=== PATIENT | female | born 1955 | race Caucasian/White ===

== ENCOUNTER → 2024-08-19 14:42 | Outpatient (REF) | payer MEDICARE, OTHER, SELFPAY | LOC: HWWDC 14:42 | PROVIDERS: ATTENDING PHYSICIAN Family Medicine | DX: Z12.31 Encounter for screening mammogram for malignant neoplasm of breast (principal) | CPT/HCPCS: 77063; 77067 ==

== ENCOUNTER 2025-09-14 05:47 | Day surgery (SDC) | payer MEDICARE, OTHER, SELFPAY ==
[2025-08-26 11:43] LABS: Hematocrit 41.8 % (37.0-47.0); Hemoglobin 13.8 g/dL (12.0-16.0); Mean Corp Hgb Conc. 33.0 g/dL (33.0-37.0); Mean Corpuscular Volume 94.1 fL (81.0-99.0); Platelet Count 360 10^3/uL (130-400); Red Cell Dist. Width 14.1 % (11.5-14.5)
[2025-08-26 12:01] LABS: ALT (SGPT) 16 U/L (0-35); AST (SGOT) 19 U/L (14-36); Albumin 4.4 g/dl (3.5-5.0); Alkaline Phosphatase 69 U/L (38-126); Blood Urea Nitrogen 11 mg/dl (7-17); Calcium 9.9 mg/dl (8.4-10.2); Carbon Dioxide 29 mmol/L (22-30); Chloride 103 mmol/L (98-107); Glucose 78 mg/dl (70-99); Potassium 4.3 mmol/L (3.5-5.1); Sodium 138 mmol/L (135-145); Total Protein 7.2 g/dl (6.3-8.2); eGFR > 60.00
[2025-08-26 13:32] LABS: Glycohemoglobin (HgbA1c) 5.7 % (4.0-5.9)
[2025-08-26 13:55] VITALS: BMI 31.8
[2025-08-26 14:55] VITALS: BMI 31.8
--- NOTE | 2025-08-31 09:42 | VNURNOTE ---
Patient is scheduled for an elective R TKA on 09/14 - she is a same day patient with Dr Martinez. Spoke with patient prior to surgery. Introduced role of [facility] Liaison. Patient reports that she lives with her spouse in a MULTI story home.
She has 'an old' rolling walker and will obtain a second one for her second floor.
She has never had same day surgery.
PCP is through [facility]
Discussed [facility] joint protocol and post surgical plans.
Reviewed that she will have VN services initially and will then start outpatient PT.
Patient selects [facility] for her home care needs. She stated she has had trouble with arranging outpt PT - her first choices [facility] on [facility]. She was told they have a month waiting list. I offered 2 other outpt PT
centers to try that are near her home: [facility] outpt PT in [place] and Outpt PT in [place]. Contact numbers provided. Patient was appreciative. Advised her to schedule outpt for end of surgical week.
Patient is in agreement with plan and states that her spouse will be home with her. Referral placed in [facility].
Plan: [facility] per [facility] joint protocol on 09/14 then outpt PT TBD
--- NOTE | 2025-09-11 15:11 | CM ---
Orthopedic Case Management Assessment
Demographics: Confirmed,
Living situation: Lives with spouse in a 2 story home is independent with adl's and ambulation, has walker at home.
Support Person Post Operatively: Spouse
History of
VN: No
SNF: No
Outpatient: Patient is set up with outpatient PT/OT at [facility] on [facility], 09/18/25
Has patient purchased required equipment: patient to obtain a walker
PCP: Judith Leong
Pharmacy: [facility]
Post Operative Discharge Plan: Patient has been scheduled for total knee arthroplasty on 09/14/[address] Martinez, same day surgery, window caser reached out to patient and patient, confirms the her will assist with transportation, patient
also reports that she was able to set up outpatient therapy with [facility] on [facility] for 09/18/25.
[2025-09-14] VITALS (18 sets, daily range): BP systolic 122–163; BP diastolic 60–99; BMI 31.8
[2025-09-14 06:36] LABS: Glucose - Point of Care 97 mg/dl (70-99)
[2025-09-14] MEDS: TYLENOL 650 MG PO (06:37)
[2025-09-14] MEDS: NORMOSOL-R/PLASMALYTE-A 1000 IV ×2 (06:37→10:39)
[2025-09-14] MEDS: CELEBREX 200 MG PO (06:37)
--- NOTE | 2025-09-14 07:09 | W.DS.TRANS ---
DC Summary - Emr Trainer
-
Discharge Instructions:
Discharge Diagnosis/Procedures R TKA Dr Martinez 09/14/25
Diet Diabetic, Carb Controlled
Activity With Walker
Driving Restrictions No driving
Bathing Restrictions OK to Shower
Other Services PT
Instructions:
Stand-Alone Forms: SDS Total Hip and Knee D/C
Changes to Home Medications: Yes
Discharge Medications:
DC Medications w/original date entered in [employer]
ezetimibe 10 mg tablet 10 mg PO HS 11/04/12
cholecalciferol (vitamin D3) 25 mcg (1,000 unit) tablet (Vitamin D3) 25 mcg PO DAILY 08/25/25
duloxetine 60 mg capsule,delayed release 90 mg PO NOON 60mg + 30mg tablet 08/25/25
levothyroxine 88 mcg tablet 88 mcg PO DAILY 08/25/25
metformin 500 mg tablet 500 mg PO QPM 08/25/25
mupirocin 2 % topical ointment 1 applic topical BID infection prevention #1 tube 08/25/25
simvastatin 10 mg tablet 10 mg PO HS 08/25/25
tirzepatide 12.5 mg/0.5 mL subcutaneous pen injector (Mounjaro) 12.5 mg SC MO 08/25/25
cefadroxil 500 mg capsule 500 mg PO BID infection prevention #14 caps 08/26/25
celecoxib 200 mg capsule 200 mg PO DAILY Anti-inflammatory #14 caps 08/26/25
dexamethasone 4 mg tablet 4 mg PO BID inflammation #6 tabs 08/26/25
famotidine 20 mg tablet 20 mg PO HS GI prophylaxis #30 tabs 08/26/25
gabapentin 300 mg capsule 300 mg PO HS sleep/pain #10 caps 08/26/25
ondansetron 4 mg disintegrating tablet 4 mg PO Q6H PRN n/v #20 tabs 08/26/25
oxycodone 5 mg tablet 5 mg PO Q6H PRN 1 tab moderate pain, 2 tabs severe pain #30 tabs 08/26/25
Saccharomyces boulardii 250 mg capsule (Florastor) 250 mg PO BID #1 cap 09/14/25
acetaminophen 500 mg tablet 1,000 mg (2 x 500 mg) PO QID #0 tabs 09/14/25
aspirin 325 mg tablet 325 mg PO DAILY blood clot prevention #1 tab 09/14/25
docusate sodium 100 mg capsule (Colace) 100 mg PO BID stool softner #1 cap 09/14/25
lisinopril 10 mg tablet 10 mg PO HS #0 tabs 09/14/25
magnesium hydroxide 400 mg/5 mL oral suspension (Milk of Magnesia) 30 ml PO HS PRN constipation #1 mL 09/14/25
sennosides 8.6 mg tablet (Senokot) 17.2 mg (2 x 8.6 mg) PO BID laxative #2 tabs 09/14/25
Home Medication Changes
cefadroxil 500 mg capsule 500 mg PO BID infection prevention #14 caps 08/26/25
celecoxib 200 mg capsule 200 mg PO DAILY Anti-inflammatory #14 caps 08/26/25
dexamethasone 4 mg tablet 4 mg PO BID inflammation #6 tabs 08/26/25
famotidine 20 mg tablet 20 mg PO HS GI prophylaxis #30 tabs 08/26/25
gabapentin 300 mg capsule 300 mg PO HS sleep/pain #10 caps 08/26/25
ondansetron 4 mg disintegrating tablet 4 mg PO Q6H PRN n/v #20 tabs 08/26/25
oxycodone 5 mg tablet 5 mg PO Q6H PRN 1 tab moderate pain, 2 tabs severe pain #30 tabs 08/26/25
Saccharomyces boulardii 250 mg capsule (Florastor) 250 mg PO BID #1 cap 09/14/25
acetaminophen 500 mg tablet 1,000 mg (2 x 500 mg) PO QID #0 tabs 09/14/25
aspirin 325 mg tablet 325 mg PO DAILY blood clot prevention #1 tab 09/14/25
docusate sodium 100 mg capsule (Colace) 100 mg PO BID stool softner #1 cap 09/14/25
lisinopril 10 mg tablet 10 mg PO HS #0 tabs 09/14/25
magnesium hydroxide 400 mg/5 mL oral suspension (Milk of Magnesia) 30 ml PO HS PRN constipation #1 mL 09/14/25
sennosides 8.6 mg tablet (Senokot) 17.2 mg (2 x 8.6 mg) PO BID laxative #2 tabs 09/14/25
Pending Results: No
[2025-09-14 09:37] LABS: Glucose - Point of Care 150 mg/dl (70-99)
[2025-09-14] MEDS: DILAUDID 0.5 MG IV ×2 (10:03→10:30)
[2025-09-14] MEDS: ROXICODONE 5 MG PO (12:20)
[2025-09-14] MEDS: ANCEF 5 IV (12:22)
[2025-09-14] MEDS: MOTRIN 600 MG PO (13:30)
[2025-09-14] MEDS: TYLENOL 1000 MG PO (13:31)
--- NOTE | 2025-09-14 14:25 | PTCARENOTE ---
Report given to oSha HOLCOMB at [id number]. Will monitor patient.
[2025-09-14] MEDS: ZOFRAN 4 MG IV (14:48)
== END 2025-09-14 15:01 | disposition home or self-care (01) ==
LOC: SDS 05:47
PROVIDERS: ATTENDING PHYSICIAN Specialist; FAMILY PHYSICIAN Family Medicine; OTHER PHYSICIAN Physician Assistant Medical
DX: M17.11 Unilateral primary osteoarthritis, right knee (principal); E66.9 Obesity, unspecified; Z68.30 Body mass index [BMI] 30.0-30.9, adult; E11.69 Type 2 diabetes mellitus with other specified complication; G47.33 Obstructive sleep apnea (adult) (pediatric)
CPT/HCPCS: 27447; C1776; 36415; 73560; 80053; 82962; 83036; 85027; 87070; 93005; 97163; C1713